=== PATIENT | male | born 1945 | race Caucasian/White ===

== ENCOUNTER 2023-08-26 15:05 | Emergency (ER) | payer MEDICARE, OTHER ==
[~2023-08-26] VITALS: Ht 160 cm; Wt 72.0 kg
[~2023-08-26 15:05] MED LIST: ALBU8HFA4 IH; AMLO-257 PO; AZIT250T9 PO; ENAL20TA60 PO; FLUT1DIS IH; FURO40 PO; LOSA-382 PO; POTA10CA44 PO; [UNRECOGNIZED DRUG - REMARK]
[2023-08-26 15:14] VITALS: BP 151/81; PULSE 60; RESP 12; TEMP 98.2
[2023-08-26] MEDS ORDERED: TAMS0.4C34 PO (15:30)
[2023-08-26] MEDS ORDERED: OMEP20 PO (15:34)
[2023-08-26] MEDS ORDERED: GABA-1216 PO (15:35)
== END 2023-08-26 16:21 | disposition left against medical advice (07) ==
LOC: EMS 15:09
DX: R53.1 Weakness (principal); I13.2 Hypertensive heart and chronic kidney disease with heart failure and with stage 5 chronic kidney disease, or end stage renal disease; N18.6 End stage renal disease; Z79.899 Other long term (current) drug therapy; Z99.2 Dependence on renal dialysis
CPT/HCPCS: 93005; 99283